=== PATIENT | female | born 1955 | race African-American/Black ===

== ENCOUNTER 2018-09-25 12:20 | Emergency (ER) | payer OTHER ==
[2018-09-25 12:58] LABS: APPEARANCE,URINE CLEAR; BILIRUBIN,URINE NEGATIVE (NEGATIVE); COLOR,URINE YELLOW; GLUCOSE, URINE NEGATIVE (NEGATIVE); KETONES,URINE NEGATIVE (NEGATIVE); LEUKOCYTE ESTERASE,URINE NEGATIVE (NEGATIVE); NITRITE,URINE NEGATIVE (NEGATIVE); PROTEIN,URINE NEGATIVE (NEGATIVE); URINE SPECIFIC GRAVITY 1.008; UROBILINOGEN,URINE NEGATIVE mg/dL (<2.0)
--- NOTE | 2018-09-25 13:26 | ER Document Report ---
ED Medical Screen (RME) - General Chief Complaint: Pain With Urination Stated Complaint: PAINFUL URINATION, BLOOD IN URINE Mode of Arrival: Ambulatory Information source: Patient Notes: Patient presents emergency department complaint of urinary frequency burning when she voids. Denies symptoms when she is not voiding. Denies fever vomiting diarrhea. Denies vaginal discharge. Denies flank pain. Patient reports she is not sexually active. UA is unremarkable. Patient is not sure about vaginal swelling. I have greeted and performed a rapid initial assessment of this patient. A comprehensive ED assessment and evaluation of the patient, analysis of test results and completion of the medical decision making process will be conducted by additional ED providers. TRAVEL OUTSIDE OF THE [place] IN LAST 30 DAYS: No - Related Data Allergies/Adverse Reactions: No Known Allergies Allergy (Verified 09/25/18 12:28) Past Medical History - Social History Chew tobacco use (# tins/day): No Frequency of alcohol use: None Drug Abuse: None - Past Medical History Cardiac Medical History: Reports: Hx Hypercholesterolemia, Hx Hypertension Endocrine Medical History: Reports: Hx Diabetes Mellitus Type 2 Renal/ Medical History: Denies: Hx Peritoneal Dialysis Skin Medical History: Reports Hx Cellulitis Past Surgical History: Reports: Hx Hysterectomy Physical Exam - Vital signs Vitals: Temp Pulse Resp BP Pulse Ox 98.3 F 78 20 183/90 H 98 09/25/18 12:27 09/25/18 12:27 09/25/18 12:27 09/25/18 12:27 09/25/18 12:27 Course - Vital Signs Vital signs: Temp Pulse Resp BP Pulse Ox 98.3 F 78 20 183/90 H 98 09/25/18 12:27 09/25/18 12:27 09/25/18 12:27 09/25/18 12:27 09/25/18 12:27 - Laboratory Laboratory results interpreted by me: 09/25/18 12:23 Urine Blood SMALL H
[2018-09-25 17:11] LABS: EPITHELIALS (WET MOUNT) 3+ EPITHELIALS SEEN; RBCS (WET MOUNT) NO RBCS SEEN; T.VAGINALIS (WET MOUNT) NO TRICHOMONAS SEEN; WBCS (WET MOUNT) NO WBCS SEEN; YEAST (WET MOUNT) NO YEAST SEEN
--- NOTE | 2018-09-25 17:22 | ER Document Report ---
ED General - General Chief Complaint: Pain With Urination Stated Complaint: PAINFUL URINATION, BLOOD IN URINE Time Seen by Provider: 09/25/18 16:07 Mode of Arrival: Ambulatory Notes: Patient is a 63-year-old female presents to the emergency department complaining of a generalized suprapubic pressure and increased frequency of urination since . Patient states she wiped after urinating yesterday and noted a scant amount of dark blood on the tissue paper which concerned her. Patient is denying any other vaginal discharge at this time. Patient is denying fever, vomiting, generalized abdominal pain. Patient states her last menstrual period was in 1998. Patient states she has not been sexually active for "years now." Patient states she is a diabetic and does have history of Yeast infections. Past medical history: Diabetes, hypertension Medications: Metformin, lisinopril, HCTZ Allergies: None TRAVEL OUTSIDE OF THE [place] IN LAST 30 DAYS: No - Related Data Allergies/Adverse Reactions: No Known Allergies Allergy (Verified 09/25/18 12:28) Past Medical History - General Information source: Patient - Social History Smoking Status: Never Smoker Chew tobacco use (# tins/day): No Frequency of alcohol use: None Drug Abuse: None Family History: None Patient has suicidal ideation: No Patient has homicidal ideation: No - Past Medical History Cardiac Medical History: Reports: Hx Hypercholesterolemia, Hx Hypertension Endocrine Medical History: Reports: Hx Diabetes Mellitus Type 2 Renal/ Medical History: Denies: Hx Peritoneal Dialysis Skin Medical History: Reports Hx Cellulitis Past Surgical History: Reports: Hx Hysterectomy Review of Systems - Review of Systems Constitutional: See HPI EENT: No symptoms reported Cardiovascular: No symptoms reported Respiratory: No symptoms reported Gastrointestinal: See HPI Genitourinary: See HPI Female Genitourinary: See HPI Musculoskeletal: No symptoms reported Skin: No symptoms reported Hematologic/Lymphatic: No symptoms reported Neurological/Psychological: No symptoms reported Physical Exam - Vital signs Vitals: Temp Pulse Resp BP Pulse Ox 98.3 F 78 20 183/90 H 98 09/25/18 12:27 09/25/18 12:27 09/25/18 12:27 09/25/18 12:27 09/25/18 12:27 - Notes Notes: GENERAL: Alert, interacts well. No acute distress. HEAD: Normocephalic, atraumatic. EYES: Pupils equal, round, and reactive to light. Extraocular movements intact. ENT: Oral mucosa moist, tongue midline. NECK: Full range of motion. Supple. Trachea midline. LUNGS: Clear to auscultation bilaterally, no wheezes, rales, or rhonchi. No respiratory distress. HEART: Regular rate and rhythm. No murmur ABDOMEN: Soft, non-tender. Non-distended. Bowel sounds present in all 4 quadrants. Minor suprapubic tenderness upon palpation. EXTREMITIES: Moves all 4 extremities spontaneously. No edema, normal radial and dorsalis pedis pulses bilaterally. No cyanosis. BACK: no cervical, thoracic, lumbar midline tenderness. No saddle anesthesia, normal distal neurovascular exam. No CVA tenderness bilaterally NEUROLOGICAL: Alert and oriented x3. Normal speech. cranial nerves II through XII grossly intact PSYCH: Normal affect, normal mood. SKIN: Warm, dry, normal turgor. No rashes or lesions noted. Exterior vaginal exam reveals no obvious abnormalities, wet mount swab was inserted without speculum. No skin lesions noted. Course - Re-evaluation Re-evalutation: 09/25/18 17:24 Patient's urine shows no signs of infection, patient's wet mount also reveals no signs of yeast. Discussed need for follow-up with primary care provider and her INTERNIST MEDICAL DOCTOR MD. Patient states she has an INTERN[facility] MEDICAL DOCTOR MD already and has already called to make an appointment. Return precautions discussed. Patient stable for discharge. Urine sent for culture. - Vital Signs Vital signs: Temp Pulse Resp BP Pulse Ox 98.3 F 78 20 183/90 H 98 09/25/18 12:27 09/25/18 12:27 09/25/18 12:27 09/25/18 12:27 09/25/18 12:27 - Laboratory Laboratory results interpreted by me: 09/25/18 12:23 Urine Blood SMALL H Discharge - Discharge Clinical Impression: Dysuria Condition: Stable Disposition: HOME, SELF-CARE Additional Instructions: As we discussed you have been seen and treated in the emergency department for painful urination. Your test results revealed no signs of infection or abnormalities. Please follow-up with your primary care provider and inevitably [facility] MEDICAL DOCTOR MD. Please return to the emergency room for any other concerning symptoms.
[2018-09-25 17:35] VITALS: BP 192/103
== END 2018-09-25 17:35 | disposition home or self-care (01) ==
LOC: ER 12:20
DX: R30.0 Dysuria (principal); R31.9 Hematuria, unspecified; R10.2 Pelvic and perineal pain; E78.00 Pure hypercholesterolemia, unspecified; I10 Essential (primary) hypertension; E11.9 Type 2 diabetes mellitus without complications; Z90.710 Acquired absence of both cervix and uterus
CPT/HCPCS: 81001; 87086; 87088; 87186; 87210; 99283